=== PATIENT | female | born 1980 | race Caucasian/White ===

== ENCOUNTER 2018-12-02 08:41 | Outpatient (REF) | payer BC, SELFPAY ==
--- NOTE | 2018-12-02 08:15 | PAPFT_PTH ---
PATIENT: Roya Quach LOC: [facility] U#:[id number] AGE/SX: 38/F ROOM: RE12/02/[address]: Nichole Dye : 1980 BED: DIS: 12/02/2018 SPEC #: [id number] RECD: 12/03/18 13:08 STATUS: LIVAN REKody #: [id number] DRE: 12/02/18 08:[address]: Nichole Dye [facility] Cytology RECD BY: Sonja Proctor ENTERED: 12/03/18 13:08 SP TYPE: PAPFT OTHR DR: Ghada Chua Tissues: 1 - CX/ENDOCX FOR PAP SMEARS Procedures: PAP THIN PREP/UVM Screening HPV DNA PROBE Comments: [id number]
[2018-12-04 15:26] LABS: Chlamydia Result Negative; GC Result Negative; Specimen Description CERVIX
== END 2018-12-02 09:01 ==
LOC: NCHCN 08:41
PROVIDERS: PCP Nurse Practitioner Family; Visit Provider Nurse Practitioner Family
DX: Z00.00 Encounter for general adult medical examination without abnormal findings (principal); Z11.3 Encounter for screening for infections with a predominantly sexual mode of transmission; N94.6 Dysmenorrhea, unspecified; Z85.820 Personal history of malignant melanoma of skin; Z12.4 Encounter for screening for malignant neoplasm of cervix; Z11.51 Encounter for screening for human papillomavirus (HPV)
CPT/HCPCS: 87491; 87591; 88142; 87624

== ENCOUNTER 2018-12-13 00:16 | Outpatient (CLI) | payer BC, SELFPAY ==
--- NOTE | 2018-12-13 13:12 | DI.MAMMO_ITS ---
SYMPTOMS/DIAGNOSIS: SCREENING, PREVENTATIVE CARE, Z12.31, Z00.00 MAMMOGRAM: Mammograms were interpreted according to the usual protocol including computer analysis with CAD system, tomosynthesis and C view imaging. The breasts are of moderate density with fairly symmetrical distribution of fibroglandular tissue. No dominant mass or clumped microcalcification is identified in either breast. The current examination is compared with previous examinations including 11/28 and there has been no gross interval change in appearance in comparison with the previous studies. CONCLUSION: No specific evidence of malignancy at this time. Routine screening examinations are suggested at yearly intervals due to the family history of breast carcinoma. Category I. Breast density Category B. MQSA ASSESSMENT OF FINDINGS: Negative. Category 1. Patient will receive a letter notifying them of these results. BI-RADS category B. There are scattered areas of fibroglandular density.
== END 2018-12-13 00:36 ==
PROVIDERS: PCP Nurse Practitioner Family; Visit Provider Nurse Practitioner Family
DX: Z00.00 Encounter for general adult medical examination without abnormal findings (principal); Z13.21 Encounter for screening for nutritional disorder; Z80.3 Family history of malignant neoplasm of breast
CPT/HCPCS: 77063; 77067

== ENCOUNTER 2019-09-25 17:09 | Outpatient (REF) | payer BC, SELFPAY ==
[2019-09-25 20:25] LABS: HCT 40.9 % (36.0-46.0); HGB 13.7 g/dL (12.0-15.5); Mean Corp. HGB Concentration 33.5 g/dL (32.0-36.0); Mean Corpuscular Hemoglobin 32.2 pg (27.0-33.0); Mean Platelet Volume 10.2 fL (8.0-11.0); Platelet Count 307 x1000/uL (130-400); RBC 4.26 m/cumm (4.00-5.20); RBC Distribution Width 12.7 % (11.7-14.6); White Blood Cell Count 8.54 k/cumm (4.4-10.8)
[2019-09-25 20:33] LABS: ALT 30 U/L (14-59); AST 16 U/L (15-37); Alkaline Phosphatase 97 U/L (46-116); Anion Gap 7.3 mmol/L (3-11); BUN 11 mg/dL (7-18); Bilirubin, Direct 0.16 mg/dL (0.00-0.20); Bilirubin, Total 0.7 mg/dL (0.2-1.0); CO2 27.7 mmol/L (21.0-32.0); CREATININE 0.79 mg/dL (0.55-1.02); Calcium 9.1 mg/dL (8.5-10.1); Chloride 107 mmol/L (98-107); Glucose 83 mg/dL (70-100); Potassium 4.2 mmol/L (3.5-5.1); Sodium 142 mmol/L (136-145)
== END 2019-09-25 17:29 ==
LOC: NCHCN 17:09
PROVIDERS: PCP Nurse Practitioner Family; Visit Provider Nurse Practitioner Family
DX: Z00.00 Encounter for general adult medical examination without abnormal findings (principal); L40.9 Psoriasis, unspecified
CPT/HCPCS: 80048; 80076; 85027

== ENCOUNTER 2019-11-03 18:00 | Outpatient (REF) | payer MEDICAID, SELFPAY ==
[2019-11-03 21:30] LABS: HCT 39.6 % (36.0-46.0); HGB 13.1 g/dL (12.0-15.5); Mean Corp. HGB Concentration 33.1 g/dL (32.0-36.0); Mean Corpuscular Hemoglobin 32.1 pg (27.0-33.0); Mean Corpuscular Volume 97.1 fL (80-95); Mean Platelet Volume 10.6 fL (8.0-11.0); Platelet Count 292 x1000/uL (130-400); RBC 4.08 m/cumm (4.00-5.20); RBC Distribution Width 13.1 % (11.7-14.6); White Blood Cell Count 11.36 k/cumm (4.4-10.8)
[2019-11-03 22:00] LABS: ALT 16 U/L (14-59); AST 13 U/L (15-37); Anion Gap 6.8 mmol/L (3-11); BUN 13 mg/dL (7-18); CO2 27.2 mmol/L (21.0-32.0); CREATININE 0.76 mg/dL (0.55-1.02); Calcium 8.8 mg/dL (8.5-10.1); Chloride 105 mmol/L (98-107); Glucose 80 mg/dL (74-106); Magnesium 1.8 mg/dL (1.8-2.4); Potassium 4.1 mmol/L (3.5-5.1); Sodium 139 mmol/L (136-145)
== END 2019-11-03 18:20 ==
LOC: NCHCN 18:00
PROVIDERS: PCP Nurse Practitioner Family; Visit Provider Nurse Practitioner Family
DX: L40.4 Guttate psoriasis (principal)
CPT/HCPCS: 80048; 85027; 83735; 84450; 84460

== ENCOUNTER 2019-11-24 17:13 | Outpatient (REF) | payer MEDICAID, SELFPAY ==
[2019-11-24 22:44] LABS: HCT 41.4 % (36.0-46.0); HGB 13.8 g/dL (12.0-15.5); Mean Corp. HGB Concentration 33.3 g/dL (32.0-36.0); Mean Corpuscular Hemoglobin 32.5 pg (27.0-33.0); Mean Corpuscular Volume 97.6 fL (80-95); Platelet Count 347 x1000/uL (130-400); RBC 4.24 m/cumm (4.00-5.20); RBC Distribution Width 13.3 % (11.7-14.6); White Blood Cell Count 8.56 k/cumm (4.4-10.8)
[2019-11-24 23:01] LABS: AST 11 U/L (15-37); Anion Gap 9.3 mmol/L (3-11); BUN 12 mg/dL (7-18); CO2 27.7 mmol/L (21.0-32.0); CREATININE 0.72 mg/dL (0.55-1.02); Chloride 104 mmol/L (98-107); Glucose 86 mg/dL (74-106); Potassium 4.2 mmol/L (3.5-5.1); Sodium 141 mmol/L (136-145)
[2019-11-24 23:21] LABS: ALT 19 U/L (14-59)
== END 2019-11-24 17:33 ==
LOC: NCHCN 17:13
PROVIDERS: PCP Nurse Practitioner Family; Visit Provider Nurse Practitioner Family
DX: L40.4 Guttate psoriasis (principal); Z51.81 Encounter for therapeutic drug level monitoring
CPT/HCPCS: 80048; 85027; 84450; 84460

== ENCOUNTER 2019-12-10 00:45 | Outpatient (CLI) | payer MEDICAID, SELFPAY | END 2019-12-10 01:05 | PROVIDERS: PCP Nurse Practitioner Family; Visit Provider Dermatology | DX: L40.4 Guttate psoriasis (principal) | CPT/HCPCS: 96900 ==

== ENCOUNTER 2019-12-12 00:13 | Outpatient (CLI) | payer MEDICAID, SELFPAY | END 2019-12-12 00:33 | PROVIDERS: PCP Nurse Practitioner Family; Visit Provider Dermatology | DX: L40.4 Guttate psoriasis (principal) | CPT/HCPCS: 96900 ==

== ENCOUNTER 2019-12-15 02:45 | Outpatient (CLI) | payer MEDICAID, SELFPAY | END 2019-12-15 03:05 | PROVIDERS: PCP Nurse Practitioner Family; Visit Provider Dermatology | DX: L40.4 Guttate psoriasis (principal) | CPT/HCPCS: 96900 ==

== ENCOUNTER 2019-12-17 02:39 | Outpatient (CLI) | payer MEDICAID, SELFPAY | END 2019-12-17 02:59 | PROVIDERS: PCP Nurse Practitioner Family; Visit Provider Dermatology | DX: L40.4 Guttate psoriasis (principal) | CPT/HCPCS: 96900 ==

== ENCOUNTER 2019-12-19 01:15 | Outpatient (CLI) | payer MEDICAID, SELFPAY | END 2019-12-19 01:35 | PROVIDERS: PCP Nurse Practitioner Family; Visit Provider Dermatology | DX: L40.4 Guttate psoriasis (principal) | CPT/HCPCS: 96900 ==

== ENCOUNTER 2019-12-22 02:24 | Outpatient (CLI) | payer MEDICAID, SELFPAY | END 2019-12-22 02:44 | PROVIDERS: PCP Nurse Practitioner Family; Visit Provider Dermatology | DX: L40.4 Guttate psoriasis (principal) | CPT/HCPCS: 96900 ==

== ENCOUNTER 2019-12-24 02:34 | Outpatient (CLI) | payer MEDICAID, SELFPAY | END 2019-12-24 02:54 | PROVIDERS: PCP Nurse Practitioner Family; Visit Provider Dermatology | DX: L40.4 Guttate psoriasis (principal) | CPT/HCPCS: 96900 ==

== ENCOUNTER 2019-12-26 01:35 | Outpatient (CLI) | payer MEDICAID, SELFPAY | END 2019-12-26 01:55 | PROVIDERS: PCP Nurse Practitioner Family; Visit Provider Dermatology | DX: L40.4 Guttate psoriasis (principal) | CPT/HCPCS: 96900 ==

== ENCOUNTER 2019-12-29 03:42 | Outpatient (CLI) | payer MEDICAID, SELFPAY | END 2019-12-29 04:02 | PROVIDERS: PCP Nurse Practitioner Family; Visit Provider Dermatology | DX: L40.4 Guttate psoriasis (principal) | CPT/HCPCS: 96900 ==

== ENCOUNTER 2019-12-31 03:37 | Outpatient (CLI) | payer MEDICAID, SELFPAY | END 2019-12-31 03:57 | PROVIDERS: PCP Nurse Practitioner Family; Visit Provider Dermatology | DX: L40.9 Psoriasis, unspecified (principal) ==

== ENCOUNTER 2020-01-05 01:51 | Outpatient (CLI) | payer MEDICAID, SELFPAY | END 2020-01-05 02:11 | PROVIDERS: PCP Nurse Practitioner Family; Visit Provider Dermatology | DX: L40.4 Guttate psoriasis (principal) ==

== ENCOUNTER 2020-01-07 02:16 | Outpatient (CLI) | payer MEDICAID, SELFPAY | END 2020-01-07 02:36 | PROVIDERS: PCP Nurse Practitioner Family; Visit Provider Dermatology | DX: L40.4 Guttate psoriasis (principal) | CPT/HCPCS: 96900 ==

== ENCOUNTER 2020-01-09 02:02 | Outpatient (CLI) | payer MEDICAID, SELFPAY | END 2020-01-09 02:22 | PROVIDERS: PCP Nurse Practitioner Family; Visit Provider Dermatology | DX: L40.4 Guttate psoriasis (principal); Z53.8 Procedure and treatment not carried out for other reasons ==

== ENCOUNTER 2020-01-12 02:09 | Outpatient (CLI) | payer MEDICAID, SELFPAY | END 2020-01-12 02:29 | PROVIDERS: PCP Nurse Practitioner Family; Visit Provider Dermatology | DX: L40.4 Guttate psoriasis (principal) | CPT/HCPCS: 96900 ==

== ENCOUNTER 2020-01-14 03:12 | Outpatient (CLI) | payer MEDICAID, SELFPAY | END 2020-01-14 03:32 | PROVIDERS: PCP Nurse Practitioner Family; Visit Provider Dermatology | DX: L40.4 Guttate psoriasis (principal) | CPT/HCPCS: 96900 ==

== ENCOUNTER 2020-01-16 00:44 | Outpatient (CLI) | payer MEDICAID, SELFPAY | END 2020-01-16 01:04 | PROVIDERS: PCP Nurse Practitioner Family; Visit Provider Dermatology | DX: L40.4 Guttate psoriasis (principal) | CPT/HCPCS: 96900 ==

== ENCOUNTER 2020-01-19 02:01 | Outpatient (CLI) | payer MEDICAID, SELFPAY | END 2020-01-19 02:21 | PROVIDERS: PCP Nurse Practitioner Family; Visit Provider Dermatology | DX: L40.9 Psoriasis, unspecified (principal) | CPT/HCPCS: 96900 ==

== ENCOUNTER 2020-01-21 04:15 | Outpatient (CLI) | payer MEDICAID, SELFPAY | END 2020-01-21 04:35 | PROVIDERS: PCP Nurse Practitioner Family; Visit Provider Dermatology | DX: L40.4 Guttate psoriasis (principal) | CPT/HCPCS: 96900 ==

== ENCOUNTER 2020-01-23 02:02 | Outpatient (CLI) | payer MEDICAID, SELFPAY | END 2020-01-23 02:22 | PROVIDERS: PCP Nurse Practitioner Family; Visit Provider Dermatology | DX: L40.4 Guttate psoriasis (principal) | CPT/HCPCS: 96900 ==

== ENCOUNTER 2020-08-24 10:12 | Outpatient (REF) | payer MEDICAID, SELFPAY | END 2020-08-24 10:32 | LOC: NCHCN 10:12 | PROVIDERS: PCP Nurse Practitioner Family; Visit Provider Nurse Practitioner Family | DX: N39.0 Urinary tract infection, site not specified (principal) | CPT/HCPCS: 87077; 87086; 87186 ==

== ENCOUNTER 2020-09-07 19:55 | Outpatient (REF) | payer MEDICAID, SELFPAY | END 2020-09-07 20:15 | LOC: NCHCN 19:55 | PROVIDERS: PCP Nurse Practitioner Family; Visit Provider Physician Assistant Medical | DX: N39.0 Urinary tract infection, site not specified (principal) | CPT/HCPCS: 87086 ==

== ENCOUNTER 2020-09-17 08:27 | Outpatient (REF) | payer MEDICAID, SELFPAY | END 2020-09-17 08:47 | LOC: NCHCN 08:27 | PROVIDERS: PCP Nurse Practitioner Family; Visit Provider Physician Assistant Medical | DX: N39.0 Urinary tract infection, site not specified (principal) | CPT/HCPCS: 87086 ==

== ENCOUNTER 2020-09-24 09:09 | Outpatient (REF) | payer MEDICAID, SELFPAY ==
[2020-09-24 20:04] LABS: Bacteria Negative HPF (Negative); C & S Indicated? No; Casts Negative LPF (Negative); Crystals Negative HPF (Negative); Epithelial Cells Rare HPF (Negative); Mucus Negative (Negative); Other Cells Negative (Negative); RBC 0-2 HPF (0-2); WBC Negative HPF (0-5)
== END 2020-09-24 09:29 ==
LOC: NCHCN 09:09
PROVIDERS: PCP Nurse Practitioner Family; Visit Provider Nurse Practitioner Family
DX: R10.9 Unspecified abdominal pain (principal); R30.0 Dysuria; N39.0 Urinary tract infection, site not specified
CPT/HCPCS: 81015

== ENCOUNTER 2020-10-25 19:17 | Outpatient (REF) | payer MEDICAID, SELFPAY ==
[2020-10-28 21:34] LABS: COVID-19 RT-PCR Result NEGATIVE (Negative)
== END 2020-10-25 19:37 ==
LOC: NCHCN 19:17
PROVIDERS: PCP Nurse Practitioner Family; Visit Provider Emergency Medicine
DX: J06.9 Acute upper respiratory infection, unspecified (principal)
CPT/HCPCS: U0003

== ENCOUNTER 2020-11-19 04:31 | Outpatient (CLI) | payer MEDICAID, SELFPAY ==
--- NOTE | 2020-11-19 08:30 | DI.MAMMO_ITS ---
EXAM: MG MAMMO SCREENING CLINICAL HISTORY: SCREENING,Z12.39 TECHNIQUE: Bilateral full field digital CC and MLO mammographic images were obtained with 3D tomosyn thesis and utilizing computer aided detection (CAD). COMPARISON: Available for comparison. FINDINGS: Masses/Architectural Distortion: There has been interval increase in size of the partially obscured n odule in the upper outer quadrant of the left breast. Microcalcifications: No suspicious pleomorphic-type are seen. Skin Thickening/Nipple Retraction: None. IMPRESSION: 1. Interval increase in size of the nodular density in the upper-outer quadrant of the left breast. 2. Spot compression views and ultrasound are requested for further evaluation. BI-RADS Category 0 - Assessment Incomplete: Need additional imaging evaluation Breast Density - Category B - Scattered areas of fibroglandular density Breast density category C or D implies that the patient has dense breast tissue. Dense breast tissue is very common and is not abnormal but dense breast tissue can make it harder to find cancer on a ma mmogram. Also, dense breast tissue may increase their breast cancer risk. This information about the result of the mammogram report was provided to the patient to raise their awareness. Use this report when you speak with the patient about their risks for breast cancer, which includes their family hist ory. At that time, you may recommend for more screening tests (Ultrasound or MRI) as they might be us eful based on their risk. A negative radiographic report should not delay biopsy if a dominant or clinically suspicious mass is present. Up to ten percent of cancers are not identified on mammography. A negative report may reinforce clinical impression. Adenosis and dense breasts may obscure an underlying neoplasm. False positive reports average 6 to 10%. Patient will receive a letter notifying them of these results.
== END 2020-11-19 04:51 ==
PROVIDERS: PCP Nurse Practitioner Family; Visit Provider Nurse Practitioner Family
DX: Z12.31 Encounter for screening mammogram for malignant neoplasm of breast (principal); N63.21 Unspecified lump in the left breast, upper outer quadrant
CPT/HCPCS: 77063; 77067

== ENCOUNTER 2020-12-03 03:01 | Outpatient (CLI) | payer MEDICAID, SELFPAY ==
--- NOTE | 2020-12-03 | DI.US_ITS ---
EXAM: MG MAMMO SCREEN CALL BACK UNI and U/S breast LT limited CLINICAL HISTORY: F/U MAMMO, INTCREASE IN SIZE OF NODULAR DENSITY UOQ LT BREAST. TECHNIQUE: Craniocaudal and mediolateral oblique Full Field Digital Mammography views of the left br east with Computer Aided Diagnosis followed by Tomosynthesis and left breast ultrasound. COMPARISON: Priors available for comparison. FINDINGS: Mammography/Tomosynthesis: Masses/Architectural Distortion: There is again seen a partially obscured nodule in the upper outer q uadrant of the left breast. Microcalcifictions: No suspicious pleomorphic-type are seen. Skin Thickening/Nipple Retraction: None. Left breast US: Echotexture: Normal appearance of the glandular tissue. Shadowing: No suspicious foci. Cyst: There is an ovoid anechoic well-circumscribed nodule at the 3 o'clock position of the left sally st 1 cm from the nipple. It measures 1 x 0.3 x 0.8 cm. It corresponds sonographically to the mammog raphic abnormality. No posterior acoustic enhancement or shadowing is seen. Solid lesions: None seen. Ductal dilation: None. IMPRESSION: 1. No evidence of malignancy is noted. 1 cm nodule at the 3 o'clock position of the left breast 1 cm from the nipple which appears to correspond to the mammographic abnormality. This appears to represe nt a cyst. 2. Unless there is more urgent need, follow-up screening mammography is recommended, as per [employer] guidelines. 3. The findings were discussed with the patient on the date of the examination. BI-RADS Category 2 - Benign Findings Breast Density - Category B - Scattered areas of fibroglandular density Breast density Category C or D implies that the patient has dense breast tissue. Dense breast tissue can make it harder to find cancer on a mammogram. Dense breast tissue is also associated with an incr eased risk of breast cancer. This information about the result of the mammogram report was provided to the patient to raise their awareness. Use this report when you speak with the patient about their risks for breast cancer, which includes their family history. At that time, you may recommend additional screening tests (Ultrasoun d or MRI) as these tests may add significant information. A negative radiographic report should not delay biopsy if a dominant or clinically suspicious mass is present. Up to ten percent of cancers are not identified on mammography. A negative report may reinforce clinical impression. Adenosis and dense breasts may obscure an underlying neoplasm. False positive reports average 6 to 10%. Patient will receive a letter notifying them of these results.
== END 2020-12-03 03:21 ==
PROVIDERS: PCP Nurse Practitioner Family; Visit Provider Nurse Practitioner Family
DX: N63.25 Unspecified lump in the left breast, overlapping quadrants (principal)
CPT/HCPCS: 76642; 77063; 77067

== ENCOUNTER 2021-10-24 17:18 | Outpatient (REF) | payer MEDICAID, SELFPAY ==
[2021-10-24 19:39] LABS: HCT 41.4 % (36.0-46.0); MCH 31.3 pg (27.0-33.0); MCHC 33.8 % (32.0-36.0); MCV 92.6 fL (80-95); Platelet Count 316 10^3/uL (130-400); RBC 4.47 10^6/uL (3.93-5.22); RDW 11.3 % (11.7-14.6); RDW-SD 38.5 fL; WBC 10.17 10^3/uL (4.4-10.8)
[2021-10-24 19:48] LABS: ESR 12 mm/hr (0-20)
[2021-10-24 20:46] LABS: C-Reactive Protein 0.23 mg/dL (0.0-0.3)
[2021-10-25 18:27] LABS: Rheumatoid Factor <8.6 IU/mL (<12.0)
[2021-10-25 18:38] LABS: ALT 35 U/L (14-59); AST 23 U/L (15-37); Albumin 3.9 g/dL (3.4-5.0); Alkaline Phosphatase 104 U/L (46-116); Bilirubin, Direct 0.2 mg/dL (0.0-0.2); Bilirubin, Total 0.7 mg/dL (0.2-1.0)
[2021-10-26 10:00] LABS: Cyclic Citrullinated Peptide <2.5 U/mL (<5.0)
== END 2021-10-24 17:19 | disposition home or self-care (01) ==
LOC: NCHCN 17:18
PROVIDERS: PCP Nurse Practitioner Family; Visit Provider Nurse Practitioner Family
DX: L40.4 Guttate psoriasis (principal)
CPT/HCPCS: 80076; 85027; 85652; 86200; 86140; 86431

== ENCOUNTER 2021-12-15 03:02 | Outpatient (CLI) | payer MEDICAID, SELFPAY ==
[2021-12-16 09:57] LABS: Hepatitis B Surface Ag Negative (Negative)
[2021-12-16 10:35] LABS: Hep B Core Antibody Negative (Negative)
[2021-12-19 14:14] LABS: TB Interpretation Negative (Negative)
== END 2021-12-15 03:03 | disposition home or self-care (01) ==
LOC: LBO 03:02
PROVIDERS: PCP Nurse Practitioner Family; Visit Provider Dermatology
DX: L40.1 Generalized pustular psoriasis (principal); Z79.899 Other long term (current) drug therapy
CPT/HCPCS: 36415; 86704; 87340; 86480

== ENCOUNTER 2022-06-13 16:51 | Outpatient (REF) | payer MEDICAID, SELFPAY ==
[2022-06-15 10:14] LABS: HIV-1/2 Ag & Ab Screen Negative (Negative)
[2022-06-15 10:20] LABS: Hepatitis C Ab w Rflx HCV PCR Negative (Negative)
[2022-06-15 21:28] LABS: Chlamydia Result Negative (Negative); GC Result Negative (Negative)
== END 2022-06-13 16:52 | disposition home or self-care (01) ==
LOC: NCHCN 16:51
PROVIDERS: PCP Nurse Practitioner Family; Visit Provider Nurse Practitioner Family
DX: Z11.3 Encounter for screening for infections with a predominantly sexual mode of transmission (principal); Z11.59 Encounter for screening for other viral diseases; Z11.4 Encounter for screening for human immunodeficiency virus [HIV]
CPT/HCPCS: 86803; 87340; 87389; 87491; 87591; 86592; 87480; 87510; 87660

== ENCOUNTER 2022-06-16 15:31 | Outpatient (REF) | payer MEDICAID, SELFPAY ==
[2022-06-19 12:55] LABS: Syphilis Serology (RPR) Negative (Negative)
[2022-06-19 22:56] LABS: Hepatitis Be Antigen Negative (Negative)
== END 2022-06-16 15:32 | disposition home or self-care (01) ==
LOC: NCHCN 15:31
PROVIDERS: PCP Nurse Practitioner Family; Visit Provider Nurse Practitioner Family
DX: Z11.3 Encounter for screening for infections with a predominantly sexual mode of transmission (principal); Z11.59 Encounter for screening for other viral diseases
CPT/HCPCS: 86592; 87350

== ENCOUNTER 2022-08-17 09:12 | Outpatient (REF) | payer MEDICAID, SELFPAY ==
--- NOTE | 2022-08-17 08:15 | PAPFT_PTH ---
PATIENT: Roya Quach LOC: [facility] #:[id number] AGE/SX: 42/F ROOM: RE08/17/[address]: Nichole Dye : 1980 BED: DIS: 08/17/2022 SPEC #: [id number] RECD: 08/17/22 17:32 STATUS: LIVAN REKody #: [id number] DRE: 08/17/22 08:[address]: Nichole Dye DEPT: [facility] Cytology RECD BY: Sonja Proctor Tissues: 1 - CX/ENDOCX FOR PAP SMEARS Procedures: PAP THIN PREP/UVM Screening HPV DNA PROBE Comments: [id number]
[2022-08-18 08:56] LABS: Hepatitis B Surface Ag Negative (Negative)
[2022-08-18 09:28] LABS: HIV-1/2 Ag & Ab Screen Negative (Negative)
[2022-08-18 09:35] LABS: Hepatitis C Ab w Rflx HCV PCR Negative (Negative)
[2022-08-18 10:15] LABS: Syphilis Serology (RPR) Negative (Negative)
[2022-08-18 15:42] LABS: Chlamydia Result Negative (Negative); GC Result Negative (Negative)
== END 2022-08-17 09:13 | disposition home or self-care (01) ==
LOC: NCHCN 09:12
PROVIDERS: PCP Nurse Practitioner Family; Visit Provider Nurse Practitioner Family
DX: F32.9 Major depressive disorder, single episode, unspecified (principal); N90.89 Other specified noninflammatory disorders of vulva and perineum; Z00.00 Encounter for general adult medical examination without abnormal findings; Z11.3 Encounter for screening for infections with a predominantly sexual mode of transmission; Z11.4 Encounter for screening for human immunodeficiency virus [HIV]; Z11.59 Encounter for screening for other viral diseases; Z12.4 Encounter for screening for malignant neoplasm of cervix; Z11.51 Encounter for screening for human papillomavirus (HPV)
CPT/HCPCS: 86803; 87340; 87389; 87491; 87591; 88142; 86592; 87624

== ENCOUNTER 2022-12-11 12:14 | Outpatient (REF) | payer MEDICAID, SELFPAY | END 2022-12-11 12:15 | disposition home or self-care (01) | LOC: NCHCN 12:14 | PROVIDERS: PCP Nurse Practitioner Family; Visit Provider Nurse Practitioner Family | DX: N39.0 Urinary tract infection, site not specified (principal) | CPT/HCPCS: 87077; 87086; 87186 ==

== ENCOUNTER 2022-12-14 02:02 | Outpatient (CLI) | payer MEDICAID, SELFPAY ==
--- NOTE | 2022-12-14 | DI.US_ITS ---
Exam(s) US RENAL EXAM: US RENAL CLINICAL HISTORY: URINARY FREQUENCY R35.0 HX BLADDER DIVERTICULUM, CHECK PVR. TECHNIQUE: Jeter scale, color and spectral Doppler were used. COMPARISON: US PELVIS TRANSVAG from 05/19/2015 FINDINGS: Renal size in cm: Right: 11.9 left: 13.4 Echogenicity: Normal Hydronephrosis: No Cyst or mass: No Nephrolithiasis: No Bladder:Normal . Both ureteral jets were visualized. No bladder diverticula or bladder wall trabecu lation visualized Prevoid vol:345 cc Postvoid vol:13 cc IMPRESSION: Negative renal ultrasound. No visible bladder diverticula. Small PVR of 13 cc. DATA REPOSITORY:
== END 2022-12-14 02:22 ==
LOC: DI 02:02
PROVIDERS: PCP Nurse Practitioner Family; Visit Provider Nurse Practitioner Family
DX: R35.0 Frequency of micturition (principal)
CPT/HCPCS: 76770

== ENCOUNTER 2022-12-15 17:47 | Outpatient (REF) | payer MEDICAID, SELFPAY | END 2022-12-15 17:48 | disposition home or self-care (01) | LOC: NCHCN 17:47 | PROVIDERS: PCP Nurse Practitioner Family; Visit Provider Physician Assistant Medical | DX: R35.0 Frequency of micturition (principal) | CPT/HCPCS: 87086 ==

== ENCOUNTER → 2023-10-12 15:17 | Outpatient (CLI) | payer MEDICAID, SELFPAY ==
--- NOTE | 2023-10-12 12:36 | DI.RAD_ITS ---
Exam(s) XR WRIST RT COMPLETE EXAM: XR WRIST RT COMPLETE CLINICAL HISTORY: PAIN RT WRIST, M25.531, PAIN FOR WEEKS WORSENING OVER 7 DAYS AFTER. TECHNIQUE: 2D digital imaging was performed of the right wrist. Three views were obtained. PA, lat eral and oblique views were obtained. COMPARISON: No exams were available for comparison FINDINGS: BONES: No acute fracture is present. No bony destructive lesion is seen. JOINTS: The carpal bones are normally aligned. SOFT TISSUE: Normal. IMPRESSION: Unremarkable radiographs of the right wrist. DATA REPOSITORY: RADIATION DOSE DELIVERED:
== END ==
PROVIDERS: PCP Nurse Practitioner Family; Visit Provider Physician Assistant
DX: M25.531 Pain in right wrist (principal)
CPT/HCPCS: 73110

== ENCOUNTER 2023-11-26 15:42 | Outpatient (REF) | payer MEDICAID, SELFPAY ==
[2023-11-26 18:51] LABS: HGB 13.3 g/dL (11.2-15.7); MCHC 33.3 % (32.0-36.0); MCV 90 fL (80-95); Platelet Count 323 10^3/uL (130-400); RBC 4.43 10^6/uL (3.93-5.22); WBC 8.93 10^3/uL (4.4-10.8)
== END 2023-11-26 15:43 | disposition home or self-care (01) ==
LOC: NCHCN 15:42
PROVIDERS: PCP Nurse Practitioner Family; Visit Provider Nurse Practitioner Family
DX: K62.5 Hemorrhage of anus and rectum (principal)
CPT/HCPCS: 85027

== ENCOUNTER → 2024-03-05 03:56 | Outpatient (CLI) | payer MEDICAID, SELFPAY ==
--- NOTE | 2024-03-05 | DI.MAMMO_ITS ---
Exam(s) MAMMO SCREENING EXAM: MAMMO SCREENING CLINICAL HISTORY: SCREENING,Z12.31,FAMILY H/O BREAST CA TECHNIQUE: Bilateral full field digital CC and MLO mammographic images were obtained with 3D tomosyn thesis and utilizing computer aided detection (CAD). COMPARISON: Available for comparison. FINDINGS: Masses/Architectural Distortion: There is a new 6 mm nodule in the upper central right breast on the MLO view. Microcalcifications: No suspicious pleomorphic-type are seen. Skin Thickening/Nipple Retraction: None. IMPRESSION: 1. New 6 mm right breast nodule. 2. Spot compression views requested for further evaluation. Ultrasound may be indicated at that time . BI-RADS Category 0 - Assessment Incomplete: Need additional imaging evaluation Breast Density - Category B - Scattered areas of fibroglandular density Breast density category C or D implies that the patient has dense breast tissue. Dense breast tissue is very common and is not abnormal but dense breast tissue can make it harder to find cancer on a ma mmogram. Also, dense breast tissue may increase their breast cancer risk. This information about the result of the mammogram report was provided to the patient to raise their awareness. Use this report when you speak with the patient about their risks for breast cancer, which includes their family hist ory. At that time, you may recommend for more screening tests (Ultrasound or MRI) as they might be us eful based on their risk. A negative radiographic report should not delay biopsy if a dominant or clinically suspicious mass is present. Up to ten percent of cancers are not identified on mammography. A negative report may reinforce clinical impression. Adenosis and dense breasts may obscure an underlying neoplasm. False positive reports average 6 to 10%. Patient will receive a letter notifying them of these results.
== END ==
PROVIDERS: PCP Nurse Practitioner Family; Visit Provider Nurse Practitioner Family
DX: Z12.31 Encounter for screening mammogram for malignant neoplasm of breast (principal); Z80.3 Family history of malignant neoplasm of breast
CPT/HCPCS: 77063; 77067

== ENCOUNTER → 2024-03-06 04:00 | Outpatient (CLI) | payer MEDICAID, SELFPAY ==
--- NOTE | 2024-03-06 | DI.US_ITS ---
Exam(s) US PELVIS TRANSVAGINAL EXAM: US PELVIS TRANSVAGINAL CLINICAL HISTORY: IRREGULAR PERIODS,N92.6 TECHNIQUE: Ultrasound of the pelvis was performed both transabdominal and transvaginal. COMPARISON: No exams were available for comparison FINDINGS: UTERUS: Nongravid and anteverted Measures 7.8 cm length x 3.1 cm AP x 0.0 cm wide. There are no uterine fibroids. Endometrial thickness measures 7 mm. There is no fluid in the endometrial canal. CERVIX: There few small nabothian cysts in the cervix noted. RIGHT OVARY: Measures 0.7 x 1.5 x 1.8 cm No significant cysts nor masses evident in the right ovary. LEFT OVARY: Measures 0.1 x 1.8 x 2.0 cm Contains a small 1.6 x 1.2 x 1.2 cm hemorrhagic cyst. CUL-DE-SAC: No free fluid evident. There appear to be dilated veins in both adnexal regions. IMPRESSION: 1. Normal appearing uterus and age-appropriate endometrium. 2. There is a 16 x 12 x 12 mm hemorrhagic cyst in left ovary. 3. There are some dilated veins in both adnexal regions. Suspect pelvic congestion syndrome. No free fluid evident. DATA REPOSITORY:
== END ==
PROVIDERS: PCP Nurse Practitioner Family; Visit Provider Nurse Practitioner Family
DX: N92.6 Irregular menstruation, unspecified (principal)
CPT/HCPCS: 76830; 76856

== ENCOUNTER → 2024-03-07 00:24 | Outpatient (CLI) | payer MEDICAID, SELFPAY ==
--- NOTE | 2024-03-07 | DI.MAMMO_ITS ---
Exam(s) MG MAMMO SCREEN CALL BACK UNI US BREAST RT LIMITED EXAM: MG MAMMO SCREEN CALL BACK UNI and U/S breast RT limited CLINICAL HISTORY: F/U MAMMO, NEW RT BREAST NODULE,R92.8. TECHNIQUE: Craniocaudal and mediolateral oblique Full Field Digital Mammography views of the right b reast with Computer Aided Diagnosis followed by Tomosynthesis and right breast ultrasound. COMPARISON: Comparison is made with prior examinations. FINDINGS: Mammography/Tomosynthesis: Masses/Architectural Distortion: The area of concern does not persist on the additional views. Microcalcifictions: No suspicious pleomorphic-type are seen. Skin Thickening/Nipple Retraction: None. Limited right breast US: Echotexture: Normal appearance of the glandular tissue. Shadowing: No suspicious foci. Cyst: None. Solid lesions: None seen. Ductal dilation: None. IMPRESSION: 1. No evidence of malignancy is noted. 2. A six-month follow-up right mammogram is requested for re-evaluation. 3. The findings were discussed with the patient on the date of the examination. BI-RADS Category 3 - 6 month - Probably Benign Finding: Recommend follow-up imaging in 6 months Breast Density - Category B - Scattered areas of fibroglandular density Breast density Category C or D implies that the patient has dense breast tissue. Dense breast tissue can make it harder to find cancer on a mammogram. Dense breast tissue is also associated with an incr eased risk of breast cancer. This information about the result of the mammogram report was provided to the patient to raise their awareness. Use this report when you speak with the patient about their risks for breast cancer, which includes their family history. At that time, you may recommend additional screening tests (Ultrasoun d or MRI) as these tests may add significant information. A negative radiographic report should not delay biopsy if a dominant or clinically suspicious mass is present. Up to ten percent of cancers are not identified on mammography. A negative report may reinforce clinical impression. Adenosis and dense breasts may obscure an underlying neoplasm. False positive reports average 6 to 10%. Patient will receive a letter notifying them of these results.
== END ==
PROVIDERS: PCP Nurse Practitioner Family; Visit Provider Nurse Practitioner Family
DX: Z12.31 Encounter for screening mammogram for malignant neoplasm of breast (principal); R92.8 Other abnormal and inconclusive findings on diagnostic imaging of breast
CPT/HCPCS: 77063; 77067

== ENCOUNTER → 2024-03-07 00:25 | Outpatient (CLI) | payer MEDICAID, SELFPAY | PROVIDERS: PCP Nurse Practitioner Family; Visit Provider Nurse Practitioner Family | DX: Z12.31 Encounter for screening mammogram for malignant neoplasm of breast (principal); R92.8 Other abnormal and inconclusive findings on diagnostic imaging of breast | CPT/HCPCS: 76642 ==

== ENCOUNTER 2024-03-13 18:48 | Outpatient (REF) | payer BC, SELFPAY ==
[2024-03-13 15:18] LABS: HCT 38.3 % (36.0-46.0); HGB 13.2 g/dL (11.2-15.7); MCH 31.3 pg (27.0-33.0); MCHC 34.5 % (32.0-36.0); MCV 91 fL (80-95); MPV 10.1 fL (8.0-11.0); Platelet Count 348 10^3/uL (130-400); RBC 4.22 10^6/uL (3.93-5.22); RDW-SD 39.8 fL; WBC 6.87 10^3/uL (4.4-10.8)
[2024-03-13 15:40] LABS: ALT 45 U/L (14-59); AST 24 U/L (15-37); Albumin 3.8 g/dL (3.4-5.0); Alkaline Phosphatase 92 U/L (46-116); Anion Gap 9.7 mmol/L (3-11); BUN 12 mg/dL (7-18); Bilirubin, Total 1.2 mg/dL (0.2-1.0); CO2 26.3 mmol/L (21.0-32.0); CREATININE 0.9 mg/dL (0.55-1.02); Calcium 8.8 mg/dL (8.5-10.1); Chloride 105 mmol/L (98-107); Estimated GFR 81.35 (mL/min/1.73m2); Glucose 95 mg/dL (74-106); Potassium 4.1 mmol/L (3.5-5.1); Sodium 141 mmol/L (136-145); Total Protein 7.1 g/dL (6.4-8.2)
[2024-03-13 16:01] LABS: Calculated LDL 90 mg/dL (<100); Cholesterol 169 mg/dL (<200); HDL Cholesterol 53 mg/dL (40-60); Triglyceride 131 mg/dL (<150)
[2024-03-13 16:40] LABS: Vitamin D 25 Total 31.4 ng/mL (30-100)
[2024-03-13 22:27] LABS: FSH 15.7 mIU/mL (See Note)
[2024-03-13 22:30] LABS: Prolactin 8.4 ng/mL (See Note)
== END 2024-03-13 18:49 | disposition home or self-care (01) ==
LOC: NCHCN 18:48
PROVIDERS: PCP Nurse Practitioner Family; Visit Provider Nurse Practitioner Family
DX: R53.83 Other fatigue (principal); N92.6 Irregular menstruation, unspecified; Z00.00 Encounter for general adult medical examination without abnormal findings
CPT/HCPCS: 80053; 80061; 82306; 85027; 83001; 84146

== ENCOUNTER 2024-06-26 17:20 | Outpatient (REF) | payer BC, SELFPAY ==
[2024-06-26 20:19] LABS: Bilirubin, Direct 0.2 mg/dL (0.0-0.2); Bilirubin, Total 0.87 mg/dL (0.2-1.0); TSH 2.05 uIU/Ml (0.36-3.74)
== END 2024-06-26 17:21 | disposition home or self-care (01) ==
LOC: NCHCN 17:20
PROVIDERS: PCP Nurse Practitioner Family; Visit Provider Nurse Practitioner Family
DX: R53.83 Other fatigue (principal); R17 Unspecified jaundice
CPT/HCPCS: 82247; 82248; 84443

== ENCOUNTER 2024-09-12 01:16 | Outpatient (CLI) | payer BC, SELFPAY ==
--- NOTE | 2024-09-12 | DI.MAMMO_ITS ---
Exam(s) MG MAMMO DIAGNOSTIC UNI US BREAST RT LIMITED EXAM: MG MAMMO DIAGNOSTIC UNI CLINICAL HISTORY: 6-mo f/u for 6 mm rt breast nodule, R92.8. COMPARISON: No exams were available for comparison TECHNIQUE: Craniocaudal and mediolateral oblique Full Field Digital Mammography views of right with Computer Aided Diagnosis, spot compression MLO view with tomosynthesis, followed by Tomosynthesis and right breast ultrasound. FINDINGS: Mammography/Tomosynthesis: Masses/Architectural Distortion: None seen. Microcalcifications: No suspicious pleomorphic-type are seen. Skin Thickening/Nipple Retraction: None. Right breast US: Echotexture: Normal appearance of the glandular tissue. Shadowing: No suspicious foci. Cyst: None. Solid lesions: None seen. Ductal dilation: None. IMPRESSION: 1. No evidence of malignancy is noted. 2. Unless there is more urgent need, follow-up screening mammography is recommended,, due in 6 months . BI-RADS Category 1 - Negative Breast Density - Category B - Scattered areas of fibroglandular density A negative radiographic report should not delay biopsy if a dominant or clinically suspicious mass is present. Up to ten percent of cancers are not identified on mammography. A negative report may reinforce clinical impression. Adenosis and dense breasts may obscure an underlying neoplasm. False positive reports average 6 to 10%. Patient will receive a letter notifying them of these results.
== END 2024-09-12 01:36 ==
LOC: DI 01:17
PROVIDERS: PCP Nurse Practitioner Family; Visit Provider Nurse Practitioner Family
DX: Z12.31 Encounter for screening mammogram for malignant neoplasm of breast (principal); R92.8 Other abnormal and inconclusive findings on diagnostic imaging of breast
CPT/HCPCS: 76642; 77061; 77065; G0279

== ENCOUNTER 2024-11-18 03:23 | Outpatient (CLI) | payer OTHER, SELFPAY ==
[2024-11-20 11:48] LABS: TB Interpretation Negative (Negative); TB2 Ag minus Nil 0.01 IU/mL
== END 2024-11-18 03:24 | disposition home or self-care (01) ==
LOC: LBO 03:23
PROVIDERS: Visit Provider Dermatology
DX: L40.0 Psoriasis vulgaris (principal); Z79.899 Other long term (current) drug therapy
CPT/HCPCS: 36415; 86480

== ENCOUNTER 2025-03-13 10:12 | Outpatient (REF) | payer OTHER, SELFPAY ==
[2025-03-13 15:25] LABS: Bilirubin Negative (Negative); Blood Trace-lysed (Negative); Clarity Clear (Clear); Glucose Negative (Negative); Ketones Negative (Negative); Leukocyte Esterase Negative (Negative); Nitrite Negative (Negative); Urobilinogen 0.2 mg/dL (Up to 0.2)
[2025-03-13 15:37] LABS: Bacteria Few HPF (Negative); C & S Indicated? No; Casts Negative LPF (Negative); Crystals Negative HPF (Negative); Epithelial Cells Rare HPF (Negative); Mucus Trace (Negative); WBC 0-2 HPF (0-5)
== END 2025-03-13 10:13 | disposition home or self-care (01) ==
LOC: NCHCN 10:12
PROVIDERS: PCP Nurse Practitioner Family; Visit Provider Nurse Practitioner Family
DX: Z87.440 Personal history of urinary (tract) infections (principal)
CPT/HCPCS: 81003; 81015

== ENCOUNTER 2025-05-21 01:20 | Outpatient (CLI) | payer OTHER, SELFPAY ==
--- NOTE | 2025-05-21 | DI.MAMMO_ITS ---
Exam(s) MAMMO SCREENING EXAM: MAMMO SCREENING CLINICAL HISTORY: Screening Z12.31. TECHNIQUE: Bilateral full field digital CC and MLO mammographic images were obtained with 3D tomosynthesis and utilizing computer aided detection (CAD). COMPARISON: Prior mammograms back to 2017 were reviewed. FINDINGS: There has been no significant change in the appearance and distribution of the fibroglandular tissue. Benign-appearing nodule in the central left breast is unchanged from 2017 appearance of a probable benign intramammary lymph node. No new left breast findings In the right breast there is a group of microcalcifications located laterally which appears more evident on prior studies. Spot compression Mag views recommended. There is no significant architectural distortion nor skin thickening-retraction. IMPRESSION: 1. No radiographic evidence malignancy in left breast. 2. Microcalcification group. Spot Mag 2D views recommended. BI-RADS Category 0 - Incomplete: Need additional imaging evaluation Breast Density - Category B - There are scattered areas of fibroglandular density. Breast density Category C or D implies that the patient has dense breast tissue. Dense breast tissue can make it harder to find cancer on a mammogram. Dense breast tissue is also associated with an increased risk of breast cancer. This information about the result of the mammogram report was provided to the patient to raise their awareness. Use this report when you speak with the patient about their risks for breast cancer, which includes their family history. At that time, you may recommend additional screening tests (Ultrasound or MRI) as these tests may add significant information. A negative radiographic report should not delay biopsy if a dominant or clinically suspicious mass is present. Up to ten percent of cancers are not identified on mammography. A negative report may reinforce clinical impression. Adenosis and dense breasts may obscure an underlying neoplasm. False positive reports average 6 to 10%. Patient will receive a letter notifying them of these results.
== END 2025-05-21 01:40 ==
PROVIDERS: PCP Nurse Practitioner Family; Visit Provider Nurse Practitioner Family
DX: Z12.31 Encounter for screening mammogram for malignant neoplasm of breast (principal); R92.323 Mammographic fibroglandular density, bilateral breasts
CPT/HCPCS: 77063; 77067

== ENCOUNTER 2025-05-26 03:10 | Outpatient (CLI) | payer OTHER, SELFPAY ==
--- NOTE | 2025-05-26 | DI.MAMMO_ITS ---
Exam(s) MAMMO SCREEN CALL BACK UNI EXAM: MAMMO SCREEN CALL BACK UNI CLINICAL HISTORY: Rt Brst F/U Microcalcifications, R92.8 ABNL Mammo. TECHNIQUE: Craniocaudal and mediolateral oblique Full Field Digital Mammography views of the right breast with Computer Aided Diagnosis. COMPARISON: Comparison is made with prior examinations. FINDINGS: Mammography/Tomosynthesis: Masses/Architectural Distortion: There are no suspicious nodules or areas of architectural distortion present. Microcalcifictions: No suspicious pleomorphic-type are seen. There is a cluster of punctate calcifications in the upper outer quadrant of the right breast which appears stable. Skin Thickening/Nipple Retraction: None. IMPRESSION: 1. No definite evidence of malignancy is noted. 2. A six-month follow-up right mammogram is requested for re-evaluation of the microcalcifications. 3. The findings were discussed with the patient on the date of the examination. BI-RADS Category 3 - 6 month - Probably Benign Finding: Recommend follow-up imaging in 6 months Breast Density - Category B - There are scattered areas of fibroglandular density. Breast density Category C or D implies that the patient has dense breast tissue. Dense breast tissue can make it harder to find cancer on a mammogram. Dense breast tissue is also associated with an increased risk of breast cancer. This information about the result of the mammogram report was provided to the patient to raise their awareness. Use this report when you speak with the patient about their risks for breast cancer, which includes their family history. At that time, you may recommend additional screening tests (Ultrasound or MRI) as these tests may add significant information. A negative radiographic report should not delay biopsy if a dominant or clinically suspicious mass is present. Up to ten percent of cancers are not identified on mammography. A negative report may reinforce clinical impression. Adenosis and dense breasts may obscure an underlying neoplasm. False positive reports average 6 to 10%. Patient will receive a letter notifying them of these results.
== END 2025-05-26 03:30 ==
LOC: DI 03:10
PROVIDERS: PCP Nurse Practitioner Family; Visit Provider Nurse Practitioner Family
DX: Z12.31 Encounter for screening mammogram for malignant neoplasm of breast (principal); R92.323 Mammographic fibroglandular density, bilateral breasts
CPT/HCPCS: 77063; 77067

== ENCOUNTER 2025-06-29 16:29 | Outpatient (REF) | payer OTHER, SELFPAY ==
[2025-06-29 18:40] LABS: Glucose Negative (Negative)
[2025-06-29 18:50] LABS: C & S Indicated? Yes; RBC 0-2 HPF (0-2); WBC 20-50 HPF (0-5)
== END 2025-06-29 16:30 | disposition home or self-care (01) ==
LOC: NCHCN 16:29
PROVIDERS: PCP Nurse Practitioner Family; Visit Provider Nurse Practitioner Family
DX: R82.90 Unspecified abnormal findings in urine (principal)
CPT/HCPCS: 87077; 81003; 81015; 87086; 87186

== ENCOUNTER 2025-08-03 18:18 | Outpatient (REF) | payer OTHER, SELFPAY | END 2025-08-03 18:19 | disposition home or self-care (01) | LOC: NCHCN 18:18 | PROVIDERS: PCP Nurse Practitioner Family; Visit Provider Nurse Practitioner Family | DX: R30.0 Dysuria (principal) | CPT/HCPCS: 87077; 87086; 87186 ==